=== PATIENT | female | born 1985 | race Caucasian/White ===

== ENCOUNTER 2018-01-21 20:55 | Emergency (ER) | payer OTHER ==
[2018-01-21 21:26] VITALS: BP 104/66; PULSE 91; TEMP 98.2; BMI 27.4
--- NOTE | 2018-01-21 21:29 | PDOC ---
Rapid Medical Evaluation Time Seen by Provider: 01/21/18 21:21 Medical Evaluation: 01/21/18 21:21 I have performed a brief in-person evaluation of this patient. The patient presents with a chief complaint of: uri w/ cough and pleuritic chest pain. H/o ?seasonal asthma Pertinent physical exam findings:Stable w/ unremarkable exam I have ordered the following:nothing The patient will proceed to the ED for further evaluation. Discharge Disposition - Diagnosis URI (upper respiratory infection) Qualifiers: URI type: unspecified viral URI Qualified Code(s): J06.9 - Acute upper respiratory infection, unspecified - Referrals - Patient Instructions - Post Discharge Activity
[2018-01-21] MEDS ORDERED: ALBUTEROL SO4 2.5/IPRATROPIUM 0.5 INH SOL 3 ML VIAL.NEB. NEB STA ×2 (22:39)
--- NOTE | 2018-01-21 22:39 | PDOC ---
History of Present Illness - General History Source: Patient Exam Limitations: No Limitations - History of Present Illness Initial Comments: 01/21/18 22:43 The patient is a 32 year old female with a significant PMH of asthma, seasonal allergies, and everyday cigarette use who presents to the emergency department with chest pain, shortness of breath, and persistent cough beginning approximately 1 week ago. She describes her cough as nonproductive with associated shortness of breath and chest pain with no radiation that is aggravated by deep inspiration. The patient denies sick contacts. She denies taking any medications for her symptoms. She states her LMP was last month and does not believe she is . The patient denies, shortness of breath, headache and dizziness. Denies fever, chills, nausea, vomit, diarrhea and constipation. Denies dysuria, frequency, urgency and hematuria. Allergies: NKDA, Pollen extracts. Past surgical history: None reported. Social history: Current everyday smoker. No reported alcohol or drug use. PCP: None reported. <Geovanny Loredo - Last Filed: 01/21/18 22:43> - General History Source: Patient <Demarcus Galvan - Last Filed: 01/22/18 00:10> - General Chief Complaint: Shortness of Breath Stated Complaint: SHORT OF BREATH,PAIN Time Seen by Provider: 01/21/18 21:21 Past History <Geovanny Loredo - Last Filed: 01/21/18 22:43> - Past Medical History Asthma: Yes COPD: No - Suicide/Smoking/Psychosocial Hx Smoking History: Current every day smoker Have you smoked in the past 12 months: Yes Number of Cigarettes Smoked Daily: 10 Information on smoking cessation initiated: Yes 'Breaking Loose' booklet given: 01/21/18 Hx Alcohol Use: No Drug/Substance Use Hx: No Substance Use Type: None <Demarcus Galvan - Last Filed: 01/22/18 00:10> - Past Medical History Allergies/Adverse Reactions: Allergies Allergy/AdvReac Type Severity Reaction Status Date / Time shellfish derived Allergy Severe Hives Verified 01/21/18 21:27 pollen extracts Allergy Intermediate Difficulty Verified 01/21/18 21:27 Breathing Home Medications: Ambulatory Orders Albuterol Sulfate Inhaler - [Ventolin HFA Inhaler -] 2 inh IH Q6H #1 inh Review of Systems - Review of Systems Able to Perform ROS?: Yes Comments:: 01/21/18 22:43 CONSTITUTIONAL: Absent: fever, chills, diaphoresis, generalized weakness, malaise, loss of appetite HEENT: Absent: rhinorrhea, nasal congestion, throat pain, throat swelling, difficulty swallowing, mouth swelling, ear pain, eye pain, visual Changes CARDIOVASCULAR: (+) Chest pain. Absent: syncope, palpitations, irregular heart rate, lightheadedness, peripheral edema RESPIRATORY: (+) Persistent cough. (+) Shortness of breath. Absent: dyspnea with exertion, orthopnea, wheezing, stridor, hemoptysis GASTROINTESTINAL: Absent: abdominal pain, abdominal distension, nausea, vomiting, diarrhea, constipation, melena, hematochezia GENITOURINARY: Absent: dysuria, frequency, urgency, hesitancy, hematuria, flank pain, genital pain MUSCULOSKELETAL: Absent: myalgia, arthralgia, joint swelling SKIN: Absent: rash, itching, pallor HEMATOLOGIC/IMMUNOLOGIC: Absent: easy bleeding, easy bruising, lymphadenopathy, frequent infections ENDOCRINE: Absent: unexplained weight gain, unexplained weight loss, heat intolerance, cold intolerance NEUROLOGIC: Absent: headache, focal weakness or paresthesias, dizziness, unsteady gait, seizure, mental status changes, bladder or bowel incontinence PSYCHIATRIC: Absent: anxiety, depression, suicidal or homicidal ideation, hallucinations. <Geovanny Loredo - Last Filed: 01/21/18 22:43> *Physical Exam - Vital Signs Last Vital Signs Temp Pulse Resp BP Pulse Ox 98.2 F 91 H 18 104/66 98 01/21/18 21:22 01/21/18 21:22 01/21/18 21:22 01/21/18 21:22 01/21/18 21:22 - Physical Exam Comments: 01/21/18 22:43 GENERAL: Well developed, well nourished. Awake and alert. No acute distress. HEENT: Normocephalic, atraumatic. PERRLA, EOMI. No conjunctival pallor. Sclera are non- icteric. Moist mucous membranes. Oropharynx is clear. NECK: Supple. Full ROM. No JVD. Carotid pulses 2+ and symmetric, without bruits. No thyromegaly. No lymphadenopathy. CARDIOVASCULAR: Regular rate and rhythm. No murmurs, rubs, or gallops. Distal pulses are 2+ and symmetric. PULMONARY: (+) Paroxysmal dry cough with scattered wheezing anteriorly. Decreased breath sounds posteriorly, particularly in right lung field. No rales or rhonchi. ABDOMINAL: Soft. Non-tender. Non-distended. No rebound or guarding. No organomegaly. Normoactive bowel sounds. MUSCULOSKELETAL Normal range of motion at all joints. No bony deformities or tenderness. No CVA tenderness. EXTREMITIES: No cyanosis. No clubbing. No edema. No calf tenderness. SKIN: Warm and dry. Normal capillary refill. No rashes. No jaundice. NEUROLOGICAL: Alert, awake, appropriate. Cranial nerves 2-12 intact. No deficits to light touch and temperature in face, upper extremities and lower extremities. No motor deficits in the in face, upper extremities and lower extremities. Normoreflexic in the upper and lower extremities. Normal speech. Toes are downgoing bilaterally. Gait is normal without ataxia. PSYCHIATRIC: Cooperative. Good eye contact. Appropriate mood and affect. <Geovanny Loredo - Last Filed: 01/21/18 22:43> - Vital Signs Last Vital Signs Temp Pulse Resp BP Pulse Ox 98.2 F 91 H 18 104/66 98 01/21/18 21:22 01/21/18 21:22 01/21/18 21:22 01/21/18 21:22 01/21/18 21:22 <Demarcus Galvan - Last Filed: 01/22/18 00:10> Heart Score/ECG Review #1 01/21/18 22:44 EKG done at 21:31 Vent rate 81 bpm Normal sinus rhythm Normal ECG <Geovanny Loredo - Last Filed: 01/21/18 22:43> Medical Decision Making - Medical Decision Making 01/22/18 00:08 Dr. Galvan: The scribe's documentation has been prepared under my direction and personally reviewed by me in its entirery. I confirm that the note above accurately reflects all work, treatment, procedures, and medical decision making performed by me. Pt feels better after two Duo nebs. Air exchange has improved. Pt advised to stop smoking and use inhaler as needed. <Demarcus Galvan - Last Filed: 01/22/18 00:10> *DC/Admit/Observation/Transfer - Attestations Scribe Attestion: 01/21/18 22:44 Documentation prepared by Geovanny Loredo, acting as medical laboratory technician for Demarcus Galvan DO. <Geovanny Loredo - Last Filed: 01/21/18 22:43> - Discharge Dispostion Decision to Admit order: No <Demarcus Galvan - Last Filed: 01/22/18 00:10> Diagnosis at time of Disposition: Cough, Bronchospasm - Discharge Dispostion Disposition: HOME Condition at time of disposition: Stable - Prescriptions Prescriptions: Albuterol Sulfate Inhaler - [Ventolin HFA Inhaler -] 2 inh IH Q6H #1 inh - Referrals Referrals: Mil Lowry MD, MD [Staff Physician] - - Patient Instructions Printed Discharge Instructions: DI for Chronic Obstructive Pulmonary Disease, DI for Cough -- Adult, How to Quit Smoking
[2018-01-21] MEDS ORDERED: ALBUTEROL SO4 2.5/IPRATROPIUM 0.5 INH SOL 3 ML VIAL.NEB. NEB ONE (22:57)
--- NOTE | 2018-01-22 10:33 | EKG ---
Test Reason : Blood Pressure : / mmHG Vent. Rate : 081 BPM Atrial Rate : 081 BPM P-R Int : 148 ms QRS Dur : 078 ms QT Int : 374 ms P-R-T Axes : 073 049 050 degrees QTc Int : 434 ms NORMAL SINUS RHYTHM NORMAL ECG NO PREVIOUS ECGS AVAILABLE Confirmed by KRISTEN ZAMBRANO, WILMAN ([id number]) on 01/22/2018 10:32:33 AM Referred By: Confirmed By:WILMAN PETERSON MD
== END 2018-01-22 00:16 | disposition home or self-care (01) ==
LOC: JERFT 20:55 → JER 20:55
PROC: 3E0F7GC Introduction of Other Therapeutic Substance into Respiratory Tract, Via Natural or Artificial Opening (ICD-10-PCS; principal; 2018-01-21)
DX: J98.01 Acute bronchospasm (principal); F17.210 Nicotine dependence, cigarettes, uncomplicated; J30.2 Other seasonal allergic rhinitis
CPT/HCPCS: 84703; 93005; 93010; 94640; 99282-25; J7620